=== PATIENT | female | born 1985 | race Two or more races ===

== ENCOUNTER 2017-11-09 15:31 | Outpatient (CLI) | payer OTHER | END 2017-11-09 17:00 | disposition home or self-care (01) | LOC: SONOGRAMA 15:31 | DX: E04.1 Nontoxic single thyroid nodule (principal) ==

== ENCOUNTER → 2020-10-27 | Outpatient (CLI) | payer OTHER | END | disposition home or self-care (01) | LOC: RAD 08:46 → SONOGRAMA 08:46 | PROVIDERS: ATTEND Internal Medicine Cardiovascular Disease | DX: E04.2 Nontoxic multinodular goiter (principal); Q51.818 Other congenital malformations of uterus; R10.84 Generalized abdominal pain; E03.8 Other specified hypothyroidism; N63.11 Unspecified lump in the right breast, upper outer quadrant ==

== ENCOUNTER 2021-08-31 07:44 | Outpatient (CLI) | payer OTHER | END 2021-08-31 15:57 | disposition home or self-care (01) | LOC: SONOGRAMA 07:44 | PROVIDERS: ATTEND Surgery | DX: E04.1 Nontoxic single thyroid nodule (principal) ==

== ENCOUNTER 2022-03-29 07:30 | Outpatient (CLI) | payer OTHER | END 2022-03-29 07:49 | disposition home or self-care (01) | LOC: NST 07:30 | PROVIDERS: ATTEND Obstetrics & Gynecology Maternal & Fetal Medicine | DX: Z34.83 Encounter for supervision of other normal pregnancy, third trimester (principal) ==

== ENCOUNTER 2022-03-29 14:00 | Inpatient (IN) | payer OTHER ==
[~2022-03-29] VITALS: Ht 162.6 cm; Wt 101.6 kg
[2022-04-12] MEDS ORDERED: SYNTHROID88 MCG (08:57)
== END 2022-04-13 14:25 | disposition home or self-care (01) | DRG 788 ==
LOC: OB/GYN 04-09 19:00 → LDR 04-09 19:00 → OB/GYN 04-10 04:31
PROVIDERS: Obstetrics & Gynecology Maternal & Fetal Medicine; ADMIT Obstetrics & Gynecology; ATTEND Obstetrics & Gynecology
PROC: 4A1HXCZ Monitoring of Products of Conception, Cardiac Rate, External Approach (ICD-10-PCS; 2022-04-09)
PROC: 10D00Z1 Extraction of Products of Conception, Low, Open Approach (ICD-10-PCS; principal; 2022-04-10 07:00)
DX: O36.8130 Decreased fetal movements, third trimester, not applicable or unspecified (principal); O99.820 Streptococcus B carrier state complicating pregnancy; O36.63X0 Maternal care for excessive fetal growth, third trimester, not applicable or unspecified; Z3A.39 39 weeks gestation of pregnancy; Z37.0 Single live birth; Z20.822 Contact with and (suspected) exposure to COVID-19

== ENCOUNTER 2024-07-22 08:44 | Outpatient (CLI) | payer OTHER ==
[~2024-07-22 08:44] MED LIST: SYNTHROID88 MCG
== END 2024-07-22 08:46 | disposition home or self-care (01) ==
LOC: SONOGRAMA 08:44
PROVIDERS: ATTEND Pathology Anatomic Pathology & Clinical Pathology
DX: D34 Benign neoplasm of thyroid gland (principal); E07.89 Other specified disorders of thyroid; E04.2 Nontoxic multinodular goiter